=== PATIENT | female | born 1990 | race Two or more races ===

== ENCOUNTER 2018-02-22 08:46 | Outpatient (CLI) | payer OTHER | END 2018-02-22 09:02 | disposition home or self-care (01) | LOC: SONOGRAMA 08:46 | DX: N83.202 Unspecified ovarian cyst, left side (principal) ==

== ENCOUNTER 2019-12-12 14:04 | Outpatient (CLI) | payer OTHER | END 2019-12-12 14:06 | disposition home or self-care (01) | LOC: SONOGRAMA 14:04 | PROVIDERS: ATTEND Physical Medicine & Rehabilitation | DX: M65.871 Other synovitis and tenosynovitis, right ankle and foot (principal); M86.8X8 Other osteomyelitis, other site; S86.111A Strain of other muscle(s) and tendon(s) of posterior muscle group at lower leg level, right leg, initial encounter ==

== ENCOUNTER 2020-06-08 09:27 | Outpatient (CLI) | payer OTHER | END 2020-06-08 09:42 | disposition home or self-care (01) | LOC: TOM 09:27 | PROVIDERS: ATTEND Otolaryngology Otology & Neurotology | DX: H92.01 Otalgia, right ear (principal) ==

== ENCOUNTER → 2020-06-15 | Outpatient (CLI) | payer OTHER | END | disposition home or self-care (01) | LOC: OFIC 805 08:30 | PROVIDERS: ATTEND Otolaryngology Otology & Neurotology | DX: G62.9 Polyneuropathy, unspecified (principal); H92.01 Otalgia, right ear; L30.8 Other specified dermatitis ==

== ENCOUNTER 2021-01-15 12:52 | Outpatient (CLI) | payer OTHER | END 2021-01-15 13:05 | disposition home or self-care (01) | LOC: MAMO-SONO 12:52 | PROVIDERS: ATTEND Obstetrics & Gynecology | DX: N63.10 Unspecified lump in the right breast, unspecified quadrant (principal); N63.20 Unspecified lump in the left breast, unspecified quadrant; N64.59 Other signs and symptoms in breast; N64.4 Mastodynia ==

== ENCOUNTER 2022-08-18 11:53 | Emergency (ER) | payer OTHER ==
[~2022-08-18] VITALS: Ht 165.1 cm; Wt 99.8 kg
[2022-08-18] MEDS ORDERED: TUSSIN DM SYRU118 ML PO (16:24)
[2022-08-18] MEDS ORDERED: ZITHROMAX500 MG PO (16:24)
== END 2022-08-18 17:38 | disposition home or self-care (01) ==
LOC: ER 11:53
DX: R05.9 Cough, unspecified (principal); Z20.822 Contact with and (suspected) exposure to COVID-19

== ENCOUNTER 2022-10-27 13:42 | Emergency (ER) | payer OTHER ==
[~2022-10-27] VITALS: Ht 165.1 cm; Wt 83.9 kg
[~2022-10-27 13:42] MED LIST: TUSSIN DM SYRU118 ML PO; ZITHROMAX500 MG PO
== END 2022-10-27 17:08 | disposition home or self-care (01) ==
LOC: ER 13:42
DX: J06.9 Acute upper respiratory infection, unspecified (principal); Z20.822 Contact with and (suspected) exposure to COVID-19

== ENCOUNTER 2024-02-11 10:43 | Emergency (ER) | payer OTHER ==
[~2024-02-11] VITALS: Ht 152.4 cm; Wt 46.3 kg
[2024-02-11] MEDS ORDERED: AVAPRO75 MG (11:01)
[2024-02-11] MEDS ORDERED: 0.9 % SODIUM CHLORIDE 1,000 ML IV SCH (11:15)
[2024-02-11 11:41] LABS: HEMATOCRIT 34.8 % (36.0-45.00); HEMOGLOBIN 11.4 g/dL (12.0-15.00); MEAN CELL VOLUME 78.6 fL (80.00-100.00); MEAN CORPUSCULAR HEMOGLOBIN 25.8 pg (27.00-32.0); MEAN CORPUSCULAR HGB CONC 32.9 g/dl (32.0-36.0); PLATELET COUNT 256 K/uL (150-450); RED BLOOD COUNT 4.42 M/uL (4.00-6.00); RED CELL DISTRIBUTION WIDTH 15.4 % (11.5-14.5)
[2024-02-11 12:34] LABS: CALCIUM 9.1 mg/dL (8.5-10.1); CREATININE SERUM 0.76 mg/dL (0.55-1.02); GFR 87.11; POTASSIUM 3.69 mEq/L (3.5-5.1)
[2024-02-11 12:51] LABS: PH,URINE 7.5 (5.0-8.0); URINE APPEARANCE Clear; URINE BILIRRUBIN Negative (NEGATIVE); URINE BLOOD Small; URINE COLOR Yellow; URINE GLUCOSE Negative (NEGATIVE); URINE KETONE Negative (NEGATIVE); URINE LEUKOCYTE Negative; URINE NITRATE Negative; URINE PROTEIN Negative (NEGATIVE); URINE UROBILINOGEN 0.2 E.U./dl
[2024-02-11 12:55] LABS: URINE BACTERIA 49.1 uL (0.0-1933); URINE RBC 5.3 uL (0.0-20.8); URINE WBC 2.3 uL (0.0-23.2)
== END 2024-02-11 14:17 | disposition home or self-care (01) ==
LOC: ER 10:45
PROVIDERS: Emergency Medicine
DX: R42 Dizziness and giddiness (principal); I10 Essential (primary) hypertension

== ENCOUNTER 2024-06-17 11:19 | Emergency (ER) | payer OTHER ==
[~2024-06-17] VITALS: Ht 165.1 cm; Wt 84.8 kg
[~2024-06-17 11:19] MED LIST changes: +AVAPRO75 MG
[2024-06-17 12:25] LABS: HEMATOCRIT 34.3 % (36.0-45.00); HEMOGLOBIN 11.3 g/dL (12.0-15.00); MEAN CELL VOLUME 76.1 fL (80.00-100.00); MEAN CORPUSCULAR HEMOGLOBIN 25.2 pg (27.00-32.0); MEAN CORPUSCULAR HGB CONC 33.1 g/dl (32.0-36.0); PLATELET COUNT 235 K/uL (150-450); RED CELL DISTRIBUTION WIDTH 17.7 % (11.5-14.5)
== END 2024-06-17 13:28 | disposition home or self-care (01) ==
LOC: ER 11:21
PROVIDERS: General Practice
DX: R50.9 Fever, unspecified (principal); I10 Essential (primary) hypertension; B34.9 Viral infection, unspecified; Z20.822 Contact with and (suspected) exposure to COVID-19